=== PATIENT | male | born 1945 | race Caucasian/White ===

== ENCOUNTER 2017-05-30 17:35 | Emergency (ER) | payer MEDICARE ==
[2017-05-30 17:51] VITALS: BP 122/67
--- NOTE | 2017-05-31 07:42 | ED ---
Nely Felton Alfonso, scribed for Kelvni Nix MD on 05/30/17 at 1816 . Palpitations / Dysrhythmia - HPI Summary HPI Summary: This patient is a 72 year old M presenting referred by Dr. Obrien (metal off bearer) to [facility] accompanied by family with a chief complaint of palpitations earlier today. The palpitations have resolved [employer]. Symptoms aggravated by nothing. Symptoms alleviated by spontaneous resolution. PMHx includes A-Fib. - History of Current Complaint Chief Complaint: EDDysrhythmPalp Hx Obtained From: Patient Onset/Duration: Sudden Onset, Resolved Severity Currently: None Aggravating: Nothing Alleviating: Other - spontaneous resolution Associated Signs & Symptoms: Negative - Allergy/Home Medications Allergies/Adverse Reactions: Allergies Allergy/AdvReac Type Severity Reaction Status Date / Time No Known Allergies Allergy Verified 12/31/12 21:00 PMH/Surg Hx/FS Hx/Imm Hx Endocrine/Hematology History: Denies: Hx Anticoagulant Therapy, Hx Diabetes, Hx Thyroid Disease Cardiovascular History: Reports: Hx Atrial Fibrillation Denies: Hx Hypertension, Hx Pacemaker/ICD Respiratory History: Denies: Hx Asthma, Hx Chronic Obstructive Pulmonary Disease (COPD) History: Denies: Hx Renal Disease Neurological History: Denies: Hx Dementia, Hx Seizures Psychiatric History: Denies: Hx Substance Abuse Infectious Disease History: No Infectious Disease History: Denies: Hx Hepatitis, Hx Human Immunodeficiency Virus (HIV), Traveled Outside the [place] in Last 30 Days - Family History Known Family History: Negative: Cardiac Disease, Diabetes - Social History Substance Use Type: Reports: None Review of Systems Negative: Fever Positive: Palpitations All Other Systems Reviewed And Are Negative: Yes Physical Exam - Summary Physical Exam Summary: VITAL SIGNS: Reviewed. GENERAL: Patient is a well-developed and nourished male who is lying comfortable in the stretcher. Patient is not in any acute respiratory distress. HEAD AND FACE: No signs of trauma. No ecchymosis, hematomas or skull depressions. No sinus tenderness. EYES: PERRLA, EOMI x 2, No injected conjunctiva, no nystagmus. EARS: Hearing grossly intact. Ear canals and tympanic membranes are within normal limits. MOUTH: Oropharynx within normal limits. NECK: Supple, trachea is midline, no adenopathy, no JVD, no carotid bruit, no c- spine tenderness, neck with full ROM. CHEST: Symmetric, no tenderness at palpation LUNGS: Clear to auscultation bilaterally. No wheezing or crackles. CVS: Regular rate and rhythm, S1 and S2 present, no murmurs or gallops appreciated. ABDOMEN: Soft, non-tender. No signs of distention. No rebound no guarding, and no masses palpated. Bowel sounds are normal. EXTREMITIES: FROM in all major joints, no edema, no cyanosis or clubbing. NEURO: Alert and oriented x 3. No acute neurological deficits. Speech is normal and follows commands. SKIN: Dry and warm Triage Information Reviewed: Yes Vital Signs On Initial Exam: Initial Vitals Temp Pulse Resp BP Pulse Ox 97.3 F 79 17 122/67 96 05/30/17 17:46 05/30/17 17:46 05/30/17 17:46 05/30/17 17:46 05/30/17 17:46 Vital Signs Reviewed: Yes Diagnostics - Vital Signs Vital Signs Temp Pulse Resp BP Pulse Ox 05/30/17 17:46 97.3 F 79 17 122/67 96 - Laboratory Lab Statement: Any lab studies that have been ordered have been reviewed, and results considered in the medical decision making process. - EKG 1759 Cardiac Rate: NL - BPM 82 EKG Interpretation: Normal axis. No ST elevation. Course/Dx - Course Assessment/Plan: This patient is a 72 year old M presenting referred by Dr. Obrien (metal off bearer) to [facility] accompanied by family with a chief complaint of palpitations earlier today. The palpitations have resolved [employer]. Symptoms aggravated by nothing. Symptoms alleviated by spontaneous resolution. PMHx includes A-Fib. The patient has an EKG with NSR at [address] elevations and a normal axis. Therefore, the patient has no complains and demands to be discharged home. However, since the patient has not been worked up, I recommended a full work up including blood work, but he declined. He request to be signed out AMA. He understands the risk of leaving AMA which includes but is not restricted to . The patient verbalizes understanding and is alert and oriented x3. The patients son also agrees. Therefore, the patient signs AMA. The patient is hemodynamically stable, alert and oriented x3. - Diagnoses Provider Diagnoses: Paroxysmal atrial fibrillation, Left against medical advice Discharge - Discharge Plan Condition: Stable Disposition: AGAINST MEDICAL ADVICE The documentation as recorded by the Nely johnson Alfonso accurately reflects the service I personally performed and the decisions made by , Kelvin Nix MD.
== END 2017-05-30 18:21 | disposition left against medical advice (07) ==
LOC: ED 17:35
DX: R00.2 Palpitations (principal); I48.0 Paroxysmal atrial fibrillation; Z53.21 Procedure and treatment not carried out due to patient leaving prior to being seen by health care provider
CPT/HCPCS: 93005; 99282